=== PATIENT | male | born 1985 | race American Indian/Alaskan Native ===

== ENCOUNTER 2018-11-30 19:07 | Emergency (ER) | payer SELFPAY ==
[~2018-11-30] VITALS: Ht 180.3 cm; Wt 88.5 kg
[~2018-11-30 19:07] MED LIST: AZIT250 PO; Amoxicillin875 MG PO; CLON.2 PO; CYCL10 PO; HYDACE5 PO; LEVFLO500 PO; LORA1 PO; NAPR550 PO; Ocuflox5 ML BOTHEYES; PROM25 PO; RXHYDACE PO
== END 2018-11-30 20:31 | disposition home or self-care (01) ==
LOC: ER 19:07
DX: R21 Rash and other nonspecific skin eruption (principal); F17.200 Nicotine dependence, unspecified, uncomplicated
CPT/HCPCS: 99283

== ENCOUNTER 2019-01-18 20:43 | Emergency (ER) | payer MEDICAID ==
[~2019-01-18] VITALS: Ht 180.3 cm; Wt 89.4 kg
[2019-01-18] MEDS ORDERED: Augmentin 875-1 EACH PO (21:51)
== END 2019-01-18 21:57 | disposition home or self-care (01) ==
LOC: ER 20:43
DX: S61.452A Open bite of left hand, initial encounter (principal); W54.0XXA Bitten by dog, initial encounter; F17.200 Nicotine dependence, unspecified, uncomplicated
CPT/HCPCS: 99283

== ENCOUNTER 2021-07-23 09:43 | Emergency (ER) | payer OTHER ==
[~2021-07-23] VITALS: Ht 180.3 cm; Wt 92.5 kg
[~2021-07-23 09:43] MED LIST changes: +Augmentin 875-1 EACH PO
== END 2021-07-23 10:25 | disposition home or self-care (01) ==
LOC: ER 09:43
DX: L03.113 Cellulitis of right upper limb (principal); F17.200 Nicotine dependence, unspecified, uncomplicated
CPT/HCPCS: 99282

== ENCOUNTER 2022-01-15 07:08 | Emergency (ER) | payer OTHER ==
[~2022-01-15] VITALS: Ht 180.3 cm; Wt 94.8 kg
== END 2022-01-15 10:00 | disposition home or self-care (01) ==
LOC: ER 07:08
DX: B35.3 Tinea pedis (principal); T69.022A Immersion foot, left foot, initial encounter; T69.021A Immersion foot, right foot, initial encounter; Z86.16 Personal history of COVID-19; F17.210 Nicotine dependence, cigarettes, uncomplicated
CPT/HCPCS: 99283; A9270

== ENCOUNTER 2022-01-16 17:54 | Emergency (ER) | payer OTHER ==
[~2022-01-16] VITALS: Ht 180.3 cm; Wt 94.8 kg
[2022-01-16 20:06] LABS: Influenza A, PCR POSITIVE (NEGATIVE); Influenza B, PCR NEGATIVE (NEGATIVE); Resp Syncytial Virus, PCR NEGATIVE (NEGATIVE); SARS-Cov-2 (COVID-19) PCR, MMC NEGATIVE (NEGATIVE)
== END 2022-01-16 20:05 | disposition left against medical advice (07) ==
LOC: ER 17:54
PROVIDERS: Physician Assistant
DX: J10.1 Influenza due to other identified influenza virus with other respiratory manifestations (principal); Z20.822 Contact with and (suspected) exposure to COVID-19; F17.210 Nicotine dependence, cigarettes, uncomplicated
CPT/HCPCS: 0241U; 99283

== ENCOUNTER 2022-10-10 14:32 | Emergency (ER) | payer OTHER ==
[~2022-10-10] VITALS: Ht 177.8 cm; Wt 94.8 kg
== END 2022-10-10 15:45 | disposition home or self-care (01) ==
LOC: ER 14:32
DX: G43.909 Migraine, unspecified, not intractable, without status migrainosus (principal); F17.210 Nicotine dependence, cigarettes, uncomplicated
CPT/HCPCS: A9270

== ENCOUNTER 2023-01-26 05:10 | Emergency (ER) | payer OTHER ==
[~2023-01-26] VITALS: Ht 180.3 cm; Wt 94.8 kg
== END 2023-01-26 06:56 | disposition home or self-care (01) ==
LOC: ER 05:10
DX: R51.9 Headache, unspecified (principal); H04.123 Dry eye syndrome of bilateral lacrimal glands; Z59.00 Homelessness unspecified; F17.210 Nicotine dependence, cigarettes, uncomplicated
CPT/HCPCS: A9270

== ENCOUNTER 2023-02-02 17:36 | Emergency (ER) | payer OTHER ==
[~2023-02-02] VITALS: Ht 180.3 cm; Wt 94.8 kg
[2023-02-02] MEDS ORDERED: AQUAPHOR ITCH R28 GM TOP (19:04)
== END 2023-02-02 19:19 | disposition home or self-care (01) ==
LOC: ER 17:36
DX: R21 Rash and other nonspecific skin eruption (principal); F17.210 Nicotine dependence, cigarettes, uncomplicated
CPT/HCPCS: 99283

== ENCOUNTER 2024-07-06 23:29 | Emergency (ER) | payer OTHER ==
[~2024-07-06] VITALS: Ht 180.3 cm; Wt 96.2 kg
[~2024-07-06 23:29] MED LIST changes: +AQUAPHOR ITCH R28 GM TOP
[2024-07-06 23:40] VITALS: BP 151/98
== END 2024-07-06 23:51 | disposition home or self-care (01) ==
LOC: ER 23:29
DX: K08.89 Other specified disorders of teeth and supporting structures (principal); F17.210 Nicotine dependence, cigarettes, uncomplicated
CPT/HCPCS: 99282

== ENCOUNTER 2024-10-09 00:35 | Emergency (ER) | payer OTHER ==
[~2024-10-09] VITALS: Ht 180.3 cm; Wt 94.8 kg
[2024-10-09 00:50] VITALS: BP 164/106
[2024-10-09 01:12] LABS: BASOPHILS ABSOLUTE AUTO 0.04 K/mm3 (0.00-0.23); BASOPHILS PERCENT AUTO 0 % (0-2); EOSINOPHILS ABSOLUTE AUTO 0.12 K/mm3 (0.00-0.68); EOSINOPHILS PERCENT AUTO 1 % (0-6); Hematocrit 44.6 % (37.0-53.0); Hemoglobin 14.9 g/dL (13.5-17.5); IMMATURE GRAN ABSOLUTE AUTO 0.02 K/mm3 (0.00-0.10); IMMATURE GRAN PERCENT AUTO 0 % (0-1); LYMPHOCYTES ABSOLUTE AUTO 3.16 K/mm3 (0.84-5.20); LYMPHOCYTES PERCENT AUTO 24 % (21-46); MONOCYTES ABSOLUTE AUTO 0.77 K/mm3 (0.16-1.47); MONOCYTES PERCENT AUTO 6 % (4-13); Mean Corpuscular HGB 30.5 pg (26.0-34.0); Mean Corpuscular HGB Conc 33.4 g/dL (31.5-36.5); Mean Corpuscular Volume 91 fL (80-100); Mean Platelet Volume 8.8 fL (9.1-12.4); NEUTROPHILS ABSOLUTE AUTO 9.07 K/mm3 (1.96-9.15); NEUTROPHILS PERCENT AUTO 69 % (41-73); Platelet Count 377 K/mm3 (150-400); RDW Standard Deviation 40.3 fL (35.1-46.3); Red Blood Cell Count 4.88 M/mm3 (4.30-5.90); White Blood Cell Count 13.18 K/mm3 (4.00-11.30)
[2024-10-09] MEDS ORDERED: ACET500 PO (01:29)
[2024-10-09] MEDS ORDERED: IBUP600 PO (01:29)
[2024-10-09] MEDS ORDERED: Ibuprofen 600 MG Tab PO ONE (01:30)
[2024-10-09] MEDS ORDERED: Acetaminophen 500 MG Tab PO ONE (01:30)
[2024-10-09 01:32] LABS: Albumin, Blood 3.8 g/dL (3.4-5.0); Albumin/Globulin Ratio 0.9 (0.8-1.8); Bilirubin, Total 0.4 mg/dL (0.1-1.0); Bun/Creatinine Ratio 11.8 (12.0-20.0); Calcium, Blood 9.6 mg/dL (8.5-10.1); Creatinine, Blood 1.02 mg/dL (0.60-1.20); Globulin, Blood 4.3 g/dL (2.2-4.0); Potassium, Blood 4.4 mmol/L (3.5-5.5); Total Protein, Blood 8.1 g/dL (6.4-8.2)
== END 2024-10-09 02:12 | disposition home or self-care (01) ==
LOC: ER 00:35
PROVIDERS: Student in an Organized Health Care Education/Training Program
DX: M79.652 Pain in left thigh (principal); F17.210 Nicotine dependence, cigarettes, uncomplicated
CPT/HCPCS: 80053; 85025; 99283; A9270

== ENCOUNTER 2025-01-06 12:22 | Emergency (ER) | payer OTHER ==
[~2025-01-06] VITALS: Ht 180.3 cm; Wt 93.0 kg
[~2025-01-06 12:22] MED LIST changes: +ACET500 PO; +IBUP600 PO
[2025-01-06] MEDS ORDERED: Miconazole Nitrate 2% 85 GM PWD TOP ONE (13:10)
[2025-01-06 13:17] VITALS: BP 125/66
== END 2025-01-06 13:18 | disposition home or self-care (01) ==
LOC: ER 12:22
DX: B35.3 Tinea pedis (principal); F17.210 Nicotine dependence, cigarettes, uncomplicated; Z59.00 Homelessness unspecified
CPT/HCPCS: 99282; A9270